=== PATIENT | male | born 1950 | race Caucasian/White ===

== ENCOUNTER 2018-01-07 06:30 | Emergency (ER) | payer OTHER ==
[~2018-01-07] VITALS: Ht 185.4 cm; Wt 95.4 kg
[~2018-01-07 06:30] MED LIST: AFRIN,GENASAL D15 ML BOTH NARES; ALEVE220 MG PO; BENADRYL ALLERG25 MG PO; FOLIC ACID1 MG PO; Thiamine,Vitamin B1 PO
[2018-01-07 07:13] LABS: HEMATOCRIT 37.8 % (38.0-50.0); HEMOGLOBIN 13.7 G/DL (12.5-16.6); MCHC 36.2 G/DL (30.0-36.0); MCV 91.1 FL (86-99); PLATELET COUNT 82 K/uL (156-360); RBC DIS.WIDTH-CV 13.7 % (11.8-14.6); RBC DIS.WIDTH-SD 45.9 % (39-53); RED BLOOD COUNT 4.15 M/uL (4.00-5.50); WHITE BLOOD COUNT 5.9 K/uL (4.1-10.2)
[2018-01-07 07:34] LABS: CHLORIDE 96 MEQ/L (99-109); POTASSIUM 2.8 MEQ/L (3.7-5.4); SODIUM 134 MEQ/L (136-147)
[2018-01-07 07:39] LABS: CREATININE 0.8 MG/DL (0.6-1.3); GFR ESTIMATE (CALCULATED) > 59 mL/min/ (58.99-99999); GLUCOSE 131 mg/dL (70-99); UREA NITROGEN (BUN) 13 mg/dL (9-23)
[2018-01-07 11:05] VITALS: BP 122/77
== END 2018-01-07 11:05 | disposition home or self-care (01) ==
LOC: EME → EDBD 06:30 → EME 06:30
PROVIDERS: Nurse Practitioner Family
DX: G89.29 Other chronic pain (principal); M25.551 Pain in right hip; M25.552 Pain in left hip; M54.5 Low back pain; R26.2 Difficulty in walking, not elsewhere classified; I10 Essential (primary) hypertension; F17.200 Nicotine dependence, unspecified, uncomplicated; F32.9 Major depressive disorder, single episode, unspecified; F41.9 Anxiety disorder, unspecified
CPT/HCPCS: 80048; 85027; 99281; 99285; G8978 GP CI; G8979 GP CH; G8980 GP CI; G8987 GO CI; G8988 GO CH; G8989 GO CI; J7030